=== PATIENT | female | born 1970 | race Caucasian/White ===

== ENCOUNTER → 2022-12-13 | Outpatient (CLI) | payer MEDICAID, SELFPAY ==
--- NOTE | 2022-12-13 | TISS_PTH ---
PATIENT: CAMRYN PITTMAN LOC: [facility] U#:[id number] AGE/SX: 52/F ROOM: RE12/13/[address]: Dr. Deny Edwards MD : 1970 BED: DIS: 12/13/2022 SPEC #: [id number] RECD: 12/14/22 08:37 STATUS: CHAYA BYRD #: [id number] ELBA: 12/13/22 00:[address]: Deny Edwards DEPT: SURGICAL PATHOLOGY RECD BY: Gilda Brar ENTERED: 12/14/22 08:38 SP TYPE: Tissue Bx SHERLYN DR: TOD Tissues: A - Skin of neck, NOS B - Skin of neck, NOS Procedures: Surgery Specimen Level III Surgery Specimen Level IV HEADER OPERATION: Excision neck cysts PRE-OP DIAGNOSIS: Localized swelling, mass and lump, neck TISSUE SUBMITTED: A - Midline neck mass, B - Left neck mass MICROSCOPIC DIAGNOSIS A. Midline neck mass, biopsy: Epidermal inclusion cyst. B. Left neck mass, biopsy: Mild fibrosis. No evidence of malignancy. AM:nohelia 12/15/2022 COMMENT Case has been reviewed in consultation with Dr. Wallace who concurs with the above diagnosis. IDC:[email or web address] MICROSCOPIC DESCRIPTION Slides are reviewed. GROSS DESCRIPTION A - Received in fixative is one container labeled with the patient's name and designated midline neck mass. The specimen consists of a punch biopsy of mcmanus-white skin measuring 0.5 cm in diameter and 0.4 cm in length. The entire specimen is submitted in one cassette. B - Received in fixative is one container labeled with the patient's name and designated left neck mass. The specimen consists of a punch biopsy of mcmanus-white skin measuring 0.5 cm in diameter and 0.3 cm in length. The entire specimen is submitted in one cassette. / JENNI:nohelia 12/14/2022 TC:5 CPT: 40570, 87479
== END | disposition home or self-care (01) ==
LOC: LABSPEC 15:30
PROVIDERS: Referring Provider Otolaryngology; Visit Provider Otolaryngology
DX: R22.1 Localized swelling, mass and lump, neck (principal)
CPT/HCPCS: 88304; 88305